=== PATIENT | female | born 1985 | race Caucasian/White ===

== ENCOUNTER 2016-09-15 16:16 | Emergency (ER) ==
[2016-09-15] MEDS ORDERED: XYLOCAINE-MPF 1% 5 ML ONE (17:07)
--- NOTE | 2016-09-15 17:14 | PROVIDER DOCUMENTATION ---
HPI-Musculoskeletal Pain/Inj - GENERAL Chief Complaint: General Adult Stated Complaint: FALL/LACERATION/EXTREMITY INJ Time Seen by Provider: 09/15/16 17:09 Source: patient - HX OF PRESENT ILLNESS-MUSKULOSKELTAL Nature of Presenting Problem: Pt is 31 y/o F presents to the ED with L ankle pain. Pt states she was goofing off with her and slipped and popped her L ankle and fell and forehead hit the dresser. Pt denies LOC. Pt states can not bear weight on L ankle. Quality of Pain: reports: aching Severity in ED: mild Onset/Duration: just prior to arrival Timing: still present, intermittent Modifying Factors: improves with: nothing Any recent injury?: Yes (slipped ) Locality of Occurance: Home Similar Symptoms Previously?: No Recently seen or treated by another doctor?: No - FALL INJURY Location of Pain/Injury: reports: face (L eye brow), lower extremity (L ankle) Pain Radiation: reports: no radiation Reason for Fall: reports: slipped Symptoms prior to fall:: reports: none Loss of Consciousness: no loss of consciousness Injury Associated Symptoms: reports: other (laceration). denies: arm pain, back /neck pain, chest pain, diaphoresis, dizziness, headaches, joint pain, muscle aches, nausea, puncture wound, shortness of breath, sensory/motor loss, snap/ crack/pop sensation, pain with inspiration, unable to bear weight, vomiting, weakness, trouble walking - LOWER EXTREMITY PAIN/INJURY Lower Extremities Pain: ankle: left (pain ) Context / Method of Injury: reports: fell Associated Symptoms: reports: weakness in legs/feet (L ankle). denies: loss of bladder control, loss of bowel control, lower back pain, muscle spasms, numbness in legs/feet, sensory/motor loss, tingling in legs/feet Review of Systems - Adult - REVIEW OF SYSTEMS - ADULT Constitutional: denies: chills, fever Eyes: denies: blurred vision, double vision Ears, Nose, Mouth & Throat: denies: ear pain, nose pain, throat pain Cardiovascular: denies: chest pain, heart murmur, irregular heart rate Respiratory: denies: cough, shortness of breath, wheezing Gastrointestinal: denies: abdominal pain, diarrhea, nausea, vomiting Genitourinary: denies: dysuria, hematuria Musculoskeletal: reports: other (L ankle pain). denies: bone pain, joint pain, neck pain Integumentary: reports: other (laceration on L eye brow). denies: hives, itching Neurological: denies: dizziness/vertigo, headache/migraines Psychiatric: reports: no symptoms reported Endocrine: reports: no symptoms reported Hematologic/Lymphatic: reports: no symptoms reported Allergic/Immunologic: reports: no symptoms reported All Other Systems: Reviewed and Negative Past History - Adult - PAST MEDICAL HISTORY-ADULT Review of Records: reports: Nursing Assessment Review, Medications Reviewed, Social history reviewed & non-contributory. Major Childhood Illnesses: reports: denies history Cardiovascular: reports: denies history Respiratory: reports: denies history Gastrointestinal: reports: denies history Obstetrical/Gynecological: reports: denies history Genitourinary: reports: denies history Musculoskeletal: reports: denies history Neurological: reports: denies history Endocrine/Immune: reports: denies history Other Conditions: reports: MRSA - PRIOR SURGERIES/PROCEDURES Surgical/Procedure History: reports: reviewed, not pertinent - IMMUNIZATION STATUS Childhood Immunizations: See Nurse Assessment Flu Vaccine: See Nurse Assessment - FAMILY HISTORY Family History: reviewed, not pertinent - SOCIAL HISTORY Smoking: quit less than 1 year, cigarettes Provider spent 3-5 mins advising pt. on dangers of tobacco.: Discussed manners to quit use, and f/u contacts for add'l counseling. Substance Use: denies Living Situation: family Physical Exam-Injury Related - Physical Exam-Injury Related Initial Vital Signs Reviewed: Yes General Appearance: appears well, alert, no apparent distress Eyes: PERRL/EOMI, pink conjunctivae, fundi clear, no AV nicking Head, Ears, Nose, Mouth & Throat: normocephalic/atraumatic, moist mucous membranes, normal ENT inspection, TMs normal, pharynx normal Neck: non-tender, full range of motion, supple, normal inspection Respiratory: chest non-tender, lungs clear, normal breath sounds, no pleuratic chest pain, no respiratory distress, no accessory muscle use Cardiovascular: normal peripheral pulses, regular rate, rhythm, no edema, no gallop, no JVD, no murmur Abdominal Exam: normal bowel sounds, non tender, soft, no organomegaly, no pulsatile mass Lymphatic: no adenopathy Back Exam: normal inspection, no CVA tenderness, no vertebral tenderness Extremity: no pedal edema, no calf tenderness, normal capillary refill, pelvis stable, tenderness (L ankle). negative: normal range of motion (limited ROM to L ankle), normal gait, normal inspection Integumentary: normal color, warm/dry Neurologic: dampener II-XII nml as tested, grossly normal, no motor/sensory deficits Psych/Mental Status: normal mood/affect, normal thought content, normal thought process, oriented x 3 Progress - PLAN OF CARE/RESULTS Progress/Plan/Lab Results: Orders Category Date Time Status ANKLE COMPLETE LEFT [RAD] Stat Exams 09/15/16 16:26 Ordered Lidocaine 1% Pf [Xylocaine-Mpf 1%] 5 ml Med 09/15/16 17:07 Discontinued .ROUTE As Directed Vital Signs - 24 hr 09/15/16 16:23 Temperature 98 F Pulse Rate 71 Respiratory 18 Rate Blood Pressure 115/77 O2 Sat by Pulse 97 Oximetry - XRAY 1 XRAY: Left XRAY Study: Ankle Impression: Normal XRAY Interpretation: normal per Dr. Link Procedures - LACERATION/WOUND REPAIR/FB Left See Other Wound Location: Other: L eye brow Wound Length: 4 cm Wound's Depth, Shape: superficial, linear Wound Explored/Foreign Body: clean Irrigated with Saline?: No Prepped with: Betadine Anesthetic: 1%, Lidocaine/Xylocaine Volume of Anesthetic (ml's): 5 Wound Repaired with: Sutures Suture Size/Type: 5.0, Nylon Number of Sutures: 8 Layer Closure?: No Sterile Dressing Applied?: No Splint Applied?: No Sling Applied?: No Post Procedure Neurovascular Exam: N/A Nose Wound Location: Other: nose Wound Length: 1 inch Wound's Depth, Shape: superficial, linear Wound Explored/Foreign Body: clean Irrigated with Saline?: No Prepped with: Betadine Anesthetic: 1%, Lidocaine/Xylocaine Volume of Anesthetic (ml's): 5 (same used on eye brow lac ) Wound Repaired with: Sutures Suture Size/Type: 5.0, Nylon Number of Sutures: 2 Layer Closure?: No Sterile Dressing Applied?: No Splint Applied?: No Sling Applied?: No Post Procedure Neurovascular Exam: N/A Departure - Departure Time of Disposition Order: 17:38 DIAGNOSIS: Laceration Fall Qualifiers: Encounter type: initial encounter Qualified Code(s): W19.XXXA - Unspecified fall, initial encounter Disposition: HOME 01 Certified Medical Emergency: Emergent Condition: Stable Additional Instructions: ED Follow Up Instructions: You have been treated by a care provider in the Emergency Department. These instructions are being provided to you so you can have an understanding of how to care for yourself upon discharge. Upon discharge from the Emergency Department, you are responsible for making arrangements for follow-up care by a physician of your choice. Take all prescribed medications as directed. Return to the Emergency Department immediately for any new or worsening symptoms. You may call the Physician Referral phone number at [phone] to obtain a list of Physicians who are taking new patients. Prescriptions: Cephalexin [Keflex] 500 mg PO 4XDAY #30 capsule Acetaminophen with Codeine [Tylenol with Codeine #3 Tablet] 1 each PO Q6H PRN PRN #20 tablet PRN Reason: Pain Referrals: Juan José Argueta MD [STAFF PHYSICIAN] - Forms: Return to School/Parent Work Instructions: Fall Prevention and Home Safety, [id number], Laceration Care, Adult, Cephalexin tablets or capsules, Acetaminophen; Codeine tablets Attestation - Scribe Verification/Attestation Scribe:: Marline Carver Acting as Scribe for:: Josiah Link Scribe documention review:: This chart was documented by a scribe and accurately reflects the service the provider performed and the decisions made by the provider.
[2016-09-15 18:27] VITALS: BP 128/88
--- NOTE | 2016-09-16 08:25 | Diag Imaging Result Document ---
PROCEDURE NAME: ANKLE COMPLETE LEFT - 09/15/2016 LEFT ANKLE, THREE VIEWS: FINDINGS: There is minimal lateral soft tissue swelling. No fracture. No dislocation. IMPRESSION: No acute bony injury.
== END 2016-09-15 18:27 | disposition home or self-care (01) ==
LOC: P.ED 16:16
DX: S01.112A Laceration without foreign body of left eyelid and periocular area, initial encounter (principal); S01.21XA Laceration without foreign body of nose, initial encounter; M25.572 Pain in left ankle and joints of left foot; W18.30XA Fall on same level, unspecified, initial encounter; W22.8XXA Striking against or struck by other objects, initial encounter; Z86.14 Personal history of Methicillin resistant Staphylococcus aureus infection; Z87.891 Personal history of nicotine dependence; Z79.899 Other long term (current) drug therapy
CPT/HCPCS: 99283

== ENCOUNTER 2016-09-23 10:30 | Emergency (ER) ==
[2016-09-23 10:44] VITALS: BP 140/88
--- NOTE | 2016-09-23 10:57 | PROVIDER DOCUMENTATION ---
HPI-Rash/Wound/ReCheck - General Source: patient - History of Present Illness-Dermatology Location: reports: face Quality: reports: none Onset/Duration: reports: other (8 days ago) Timing: reports: improving Context/Associated Symptoms: reports: other (suture removal) Identifiable cause?: Yes (prior fall ) Locality of Occurance: Home Similar Symptoms Previously?: Yes Recently seen or treated by another doctor?: Yes - Recheck Treated days ago.: 8 (7 sutures removed ) Previous Treatment: other (suture removal) Antibiotics given: none Symptoms since procedure:: reports: no complaints <Marline Carver - Last Filed: 09/23/16 10:58> <Cm Peñaloza - Last Filed: 09/23/16 11:02> - General Chief Complaint: Suture/Staple Removal Stated Complaint: SUTURE/STAPLE REMOVAL Time Seen by Provider: 09/23/16 10:52 Allergies/Adverse Reactions: Allergies Allergy/AdvReac Type Severity Reaction Status Date / Time latex AdvReac Mild SWELLING Verified 08/17/16 15:16 Home Medications: Home Medication List Medication Instructions Recorded Confirmed Last Taken Type Buspirone HCl [Buspar] 5 mg PO DAILY 09/04/16 09/04/16 Unknown History Fluoxetine HCl [Prozac] 40 mg PO DAILY 09/04/16 09/04/16 Unknown History Omeprazole 20 mg PO DAILY #20 tablet. 09/04/16 Unknown Rx Acetaminophen with Codeine 1 each PO Q6H PRN PRN #20 tablet 09/15/16 Unknown Rx [Tylenol with Codeine #3 Tablet] Cephalexin [Keflex] 500 mg PO 4XDAY #30 capsule 09/15/16 Unknown Rx - History of Present Illness-Dermatology Nature of Presenting Problem: Pt is 31 y/o F presents to the ED with suture removal. Pt fell on Sep 15 causing laceration to L eye brow and bridge of nose. Pt denies pain now. (Marline Carver) Review of Systems - Adult - REVIEW OF SYSTEMS - ADULT Constitutional: reports: no symptoms reported Eyes: reports: no symptoms reported Ears, Nose, Mouth & Throat: reports: no symptoms reported Cardiovascular: reports: no symptoms reported Respiratory: reports: no symptoms reported Gastrointestinal: reports: no symptoms reported Genitourinary: reports: no symptoms reported Musculoskeletal: reports: no symptoms reported Integumentary: reports: other (suture removal). denies: hives, itching Neurological: reports: no symptoms reported Psychiatric: reports: no symptoms reported Endocrine: reports: no symptoms reported Hematologic/Lymphatic: reports: no symptoms reported Allergic/Immunologic: reports: no symptoms reported All Other Systems: Reviewed and Negative <Marline Carver - Last Filed: 09/23/16 10:58> Past History - Adult - PAST MEDICAL HISTORY-ADULT Review of Records: reports: Nursing Assessment Review, Medications Reviewed, Social history reviewed & non-contributory. Major Childhood Illnesses: reports: denies history Cardiovascular: reports: denies history Respiratory: reports: denies history Gastrointestinal: reports: denies history Obstetrical/Gynecological: reports: denies history Genitourinary: reports: denies history Musculoskeletal: reports: denies history Neurological: reports: denies history Endocrine/Immune: reports: denies history Other Conditions: reports: MRSA - PRIOR SURGERIES/PROCEDURES Surgical/Procedure History: reports: reviewed, not pertinent - IMMUNIZATION STATUS Childhood Immunizations: See Nurse Assessment Flu Vaccine: See Nurse Assessment - FAMILY HISTORY Family History: reviewed, not pertinent - SOCIAL HISTORY Smoking: cigarettes, less than 1 pack/day Provider spent 3-5 mins advising pt. on dangers of tobacco.: Discussed manners to quit use, and f/u contacts for add'l counseling. Substance Use: denies Living Situation: family <Marline Carver - Last Filed: 09/23/16 10:58> Physical Exam-General - PHYSICAL EXAM-ADULT Initial Vital Signs Reviewed: Yes - CONSTITUTIONAL General Appearance: appears well, alert, no apparent distress - EYES Eyes: PERRL/EOMI, pink conjunctivae, fundi clear, no AV nicking - HEAD, EARS, NOSE, MOUTH & THROAT HENMT: normocephalic/atraumatic, moist mucous membranes, normal ENT inspection, TMs normal, pharynx normal - NECK Neck: non-tender, full range of motion, supple, normal inspection - RESPIRATORY Respiratory: chest non-tender, lungs clear, normal breath sounds, no pleuratic chest pain, no respiratory distress, no accessory muscle use - CARDIOVASCULAR Cardiovascular: normal peripheral pulses, regular rate, rhythm, no edema, no gallop, no JVD, no murmur - GASTROINTESTINAL (ABDOMEN) Abdominal Exam: normal bowel sounds, non tender, soft, no organomegaly, no pulsatile mass - LYMPHATIC Lymphatic: no adenopathy - MUSCULOSKELETAL Back Exam: normal inspection, no CVA tenderness, no vertebral tenderness Extremity: normal range of motion, non-tender, normal gait, normal inspection, no pedal edema, no calf tenderness, normal capillary refill - SKIN Integumentary: normal color, normal turgor, warm/dry, other (suture removal to L eye brow and bridge of nose) - NEUROLOGIC Neurologic: grossly normal - PSYCHIATRIC Psych/Mental Status: normal mood/affect, oriented x 3 <Marline Carver - Last Filed: 09/23/16 10:58> Progress <Marline Carver - Last Filed: 09/23/16 10:58> <Cm Peñaloza - Last Filed: 09/23/16 11:02> - PLAN OF CARE/RESULTS Progress/Plan/Lab Results: Vital Signs - 24 hr 09/23/16 10:40 Temperature 99 F Pulse Rate 77 Respiratory 18 Rate Blood Pressure 140/88 O2 Sat by Pulse 97 Oximetry Removal of 7 sutures to L eye brow and bridge of nose by PA. [place] (Marline Carver) Vital Signs Temp Pulse Resp BP Pulse Ox 09/23/16 10:40 99 F 77 18 140/88 97 latex Adverse Reaction (Mild, Verified 08/17/16 15:16) SWELLING Buspirone HCl [Buspar] 5 mg PO DAILY 09/04/16 Fluoxetine HCl [Prozac] 40 mg PO DAILY 09/04/16 Omeprazole 20 mg PO DAILY #20 tablet. 09/04/16 Acetaminophen with Codeine [Tylenol with Codeine #3 Tablet] 1 each PO Q6H PRN PRN #20 tablet 09/15/16 Cephalexin [Keflex] 500 mg PO 4XDAY #30 capsule 09/15/16 (Cm Peñaloza) Departure <Marline Carver - Last Filed: 09/23/16 10:58> - Departure Time of Disposition Order: 11:02 Certified Medical Emergency: Urgent <Cm Peñaloza - Last Filed: 09/23/16 11:02> - Departure DIAGNOSIS: Encounter for removal of sutures Disposition: HOME 01 Condition: Good Additional Instructions: Keep area clean and dry. Follow up with your primary care provider. ED Follow Up Instructions: You have been treated by a care provider in the Emergency Department. These instructions are being provided to you so you can have an understanding of how to care for yourself upon discharge. Upon discharge from the Emergency Department, you are responsible for making arrangements for follow-up care by a physician of your choice. Take all prescribed medications as directed. Return to the Emergency Department immediately for any new or worsening symptoms. You may call the Physician Referral phone number at [phone] to obtain a list of Physicians who are taking new patients. Referrals: Hiram Rivera MD [STAFF PHYSICIAN] - None,PCP [Primary Care Provider] - Forms: Return to School/Parent Work Instructions: Suture Removal, Care After Attestation - Scribe Verification/Attestation Scribe:: Marline Carver Acting as Scribe for:: Franc Goyal Scribe documention review:: This chart was documented by a scribe and accurately reflects the service the provider performed and the decisions made by the provider. <Marline Carver - Last Filed: 09/23/16 10:58> - Physician/ OLIVIA Attestation Patient care was provided by Advanced Practice Provider:: Yes Advanced Practice Provider:: Cm Peñaloza Advanced Practice Provider documentation review:: The Mid-level provider documentation, treatment plan and medical decision making was reviewed by the physician who agrees with all treatment and medical decision making by the MLP. <Cm Peñaloza - Last Filed: 09/23/16 11:02> Physician Attestation
== END 2016-09-23 11:15 | disposition home or self-care (01) ==
LOC: P.ED 10:30
DX: Z48.02 Encounter for removal of sutures (principal); S01.112D Laceration without foreign body of left eyelid and periocular area, subsequent encounter; S01.21XD Laceration without foreign body of nose, subsequent encounter; Z86.14 Personal history of Methicillin resistant Staphylococcus aureus infection; F17.210 Nicotine dependence, cigarettes, uncomplicated; Z71.6 Tobacco abuse counseling; Z79.899 Other long term (current) drug therapy; W19.XXXD Unspecified fall, subsequent encounter
CPT/HCPCS: 99282